=== PATIENT | male | born 1965 | race Caucasian/White ===

== ENCOUNTER 2018-07-13 16:17 | Inpatient (IN) ==
[2018-07-13 16:56] LABS: Basophils # 0.1 K/mm3 (0-0.2); Basophils % 0.9 % (0.1-2.0); Eosinophils % 6.5 % (0.1-12.0); Hematocrit 44.1 % (42.0-52.0); Hemoglobin 15.9 g/dL (14.1-18.0); Lymphocytes # 2.9 K/mm3 (0.7-4.5); Lymphocytes % 18.9 K/mm3 (10-50); Mean Corpuscular HGB Conc 36.1 g/dL (31.8-35.4); Mean Corpuscular Hemoglobin 32.2 pg (27.0-31.2); Mean Platelet Volume 6.4 fl (7.4-10.4); Monocytes # 1.3 K/mm3 (0.1-1.0); Monocytes % 8.7 % (1.7-9.3); Neutrophils # 9.8 K/mm3 (1.8-7.8); Platelet Count 353 K/mm3 (142-424); Red Blood Count 4.96 M/mm3 (4.60-6.20); Red Cell Distribution Width 17.3 % (11.5-17.5); White Blood Count 15.1 K/mm3 (4.8-10.8)
[2018-07-13 17:10] LABS: Anion Gap 15.7 mEq/L (5-15); Blood Urea Nitrogen 9 mg/dL (7-18); Calcium 9.1 mg/dL (8.5-10.1); Carbon Dioxide 25 mmol/L (21.0-32.0); Chloride 104 mmol/L (98-107); Glucose 95 mg/dL (74-106); Potassium 3.7 mmoL/L (3.5-5.1); Sodium 141 mmol/L (136-145)
--- NOTE | 2018-07-13 17:11 | Emergency Department Note ---
ED Disposition Clinical Impression: Lung mass, Essential hypertension Pneumonia Qualifiers: Pneumonia type: due to unspecified organism Laterality: right Lung location: lower lobe of lung Qualified Code(s): J18.1 - Lobar pneumonia, unspecified organism Disposition: Admitted as Observation Condition on Discharge: Fair Instructions: Pneumonia-Adult Additional Instructions: I discussed this patient with Dr. Costa who is covering for Dr. Gonzalez and the patient is being admitted for blood pressure control and for treatment of his pneumonia and for further evaluation of these lung masses Referrals: Russell Gonzalez MD [Primary Care Provider] - Time of Disposition: 18:59 - Critical Care Critical Care Time: No Attestation: On 07/13/18, the high probability of a clinically significant, sudden or life threatening deterioration of the following system(s) required my full and direct attention, intervention and personal management. The time I documented below is in addition to time spent performing reported procedures but includes the following listed in this critical care notation. Medical Decision Making - Medical Records Medical records reviewed: Yes: I reviewed the patient's medical records. - Robert Inquiry Pt receiving controlled substance: Yes Robert was queried for this patient: No Reason not queried -: Emergent pt cond-no time Risks and benefits of using a controlled substance: were not discussed with pt by me Vital Signs: 07/13/18 16:20 07/13/18 16:55 07/13/18 16:59 Temperature 98.2 F Temperature Source Oral Pulse Rate [Apical] 116 H 100 H 99 H Respiratory Rate 18 18 20 Blood Pressure [Right Arm] 230/115 190/116 182/117 Blood Pressure Mean [Right Arm] 153 140 138 Blood Pressure Source [Right Arm] Manual Cuff/ Auscultation Automatic Cuff Automatic Cuff Blood Pressure Position [Right Arm] Sitting Sitting Sitting 02 Sat by Pulse Oximetry 95 95 95 Oxygen Delivery Method Room Air Room Air Room Air 07/13/18 17:37 07/13/18 18:14 Temperature Temperature Source Pulse Rate [Apical] 89 88 Respiratory Rate 18 21 Blood Pressure [Right Arm] 197/117 183/119 Blood Pressure Mean [Right Arm] 143 140 Blood Pressure Source [Right Arm] Automatic Cuff Automatic Cuff Blood Pressure Position [Right Arm] Sitting Sitting 02 Sat by Pulse Oximetry 95 95 Oxygen Delivery Method Room Air Room Air - Lab Data Lab results reviewed: Yes: I reviewed the patient's lab results. Lab Results 07/13/18 16:42: WBC 15.1 H, RBC 4.96, Hgb 15.9, Hct 44.1, MCV 89.0, MCH 32.2 H, MCHC 36.1 H, RDW 17.3, Plt Count 353, MPV 6.4 L, Neut % (Auto) 65.0, Lymph % (Auto) 18.9, [place] % (Auto) 8.7, Eos % (Auto) 6.5, Baso % (Auto) 0.9, Neut # (Auto) 9.8 H, Lymph # (Auto) 2.9, [place] # (Auto) 1.3 H, Eos # (Auto) 1.0 H, Baso # (Auto) 0.1, Total Counted 100, Neutrophils % (Manual) 67, Lymphocytes % (Manual) 24, Monocytes % (Manual) 5, Eosinophils % (Manual) 3, Metamyelocytes % 1.0, Platelet Estimate Normal, RBC Morphology Normal 07/13/18 16:42: Sodium 141, Potassium 3.7, Chloride 104, Carbon Dioxide 25, Anion Gap 15.7 H, BUN 9, Creatinine 1.02, Estimated Creat Clear 159, Estimated GFR 77, Est GFR ( Amer) 93, Glucose 95, Calcium 9.1, Troponin I < 0.02 Result diagrams: 07/13/18 16:42 07/13/18 16:42 Orders (Tests/Meds): ED MEDICATIONS Discontinued Medications Generic Name Dose Route Start Last Admin Trade Name Freq PRN Reason Stop Dose Admin Iopamidol 75 ml 07/13/18 18:04 07/13/18 18:04 [id number]; 75ml Vial IV 07/13/18 18:05 75 ml ONCE ONE Administration Protocol Lorazepam 1 mg 07/13/18 17:21 07/13/18 17:22 Ativan 2mg/Ml Vial IV 07/13/18 17:22 1 mg ONCE ONE Administration Metoprolol Tartrate 2.5 mg 07/13/18 17:13 07/13/18 17:23 Metoprolol Tartrate 5mg/5ml Vial IV 07/13/18 17:14 2.5 mg ONCE ONE Administration Metoprolol Tartrate 25 mg 07/14/18 17:15 Lopressor 25mg Tablet PO 07/14/18 17:16 ONCE ONE Metoprolol Tartrate 25 mg 07/13/18 17:24 07/13/18 17:25 Lopressor 50mg Tablet PO 07/13/18 17:25 25 mg ONCE ONE Administration Sodium Chloride 10 ml 07/13/18 18:04 07/13/18 18:04 Rad-Saline Flush 10ml Syringe IV 07/13/18 18:05 10 ml ONCE ONE Administration ORDERS Category Date Time Status CT chest w con Stat Cat Scan 07/13/18 17:30 Taken Chest XR -- portable [XR chest portable] Stat Exams 07/13/18 16:27 Taken Lactic Acid Stat Lab 07/13/18 18:23 Ordered Blood Culture Stat Micro 07/13/18 18:23 Ordered ABG PH Stat RT 07/13/18 18:23 Ordered - Radiology Data #1 Image(s): Chest Image Reviewed: Yes I reviewed the patient's radiology results Right hilar mass with right lower lobe effusion - CT Data CT Scan: Chest Time Received: 18:[address] Reviewed: Yes: I have reviewed the patient's CT results, I discussed the CT results w/the radiologist, I have viewed the radiologist's interpretation Findings Narrative: CT chest shows a large soft tissue mass within the right upper lobe this 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 and or a ssociated with mediastinal lymphadenopathy there is also a right lower lobe pneumonia present with a large right pleural effusion - ECG Data Tracing #1 I reviewed this ECG and interpreted as documented below: ECG initial impression date: 07/13/18 ECG initial impression time: 17:05 Normal Sinus Rhythm: Yes Arrhythmias present: sinus tach Ischemic changes: non-specific ST-T wave changes General Adult HPI - General Chief complaint: Dizziness Stated complaint: High Blood Pressure per [facility] Time Seen by Provider: 07/13/18 17:06 Mode of Arrival: Ambulatory Limitations: No Limitations Description of Symptoms (Recalled from ER Triage Doc. by RN): Pt reports he went to [facility] to get check out r/t congestion and "nerves bothering me". Pt reports provider at [facility] told him he needed to come to the ER for further evaluation r/t high blood pressure. - History of Present Illness HPI narrative: Patient went to the [facility] to rule out congestion and said his nerves have been bothering him a lot at the [facility] his blood pressure was 240 systolic he was advised to come to the emergency room for treatment on arrival in the emergency room his blood pressure was 230/118 he gives a history that he has had hypertension in the past but has not been on any medicines for it in quite some time he also has a history of smoking and smoked and quit smoking 1 week ago he has no known drug allergies does not drink alcohol and does not use drugs he has had only an umbilical hernia repair in the past and he does have a family history of hypertension Onset (ago): day(s) Location: chest - Related Data Home Medications Medication Instructions Recorded Confirmed LORazepam [Ativan 0.5mg tablet] 0.5 mg PO BID 07/13/18 07/13/18 Allergies Allergy/AdvReac Type Severity Reaction Status Date / Time No Known Allergies Allergy Unverified 10/16/17 14:09 [facility] History I have reviewed the patient's past medical history: Yes Medical History: Denies:: Diabetes Mellitus Type 1, Diabetes Mellitus Type 2 - Social History Smoking Status: Current some day smoker Alcohol Intake: never - Psychiatric History Expresses thoughts of harming self/others: None Suicide Plan Description: No Plan ROS Obtained: Yes All systems reviewed & no additional complaints - Constitutional Constitutional: Reports system reviewed and no additional complaints, except as docu - Cardiovascular Cardiovascular: Reports system reviewed and no additional complaints, except as docu, Reports as per HPI - Respiratory Respiratory: Yes system reviewed and no additional complaints, except as docu, Yes as per HPI Physical Exam - General General appearance: alert, in no apparent distress, anxious - Head Head exam: atraumatic - Eye Eye exam: Present: normal appearance - ENT ENT exam: Present: normal exam - Neck Neck exam: Present: normal inspection - Chest Chest inspection: Present: normal inspection - Respiratory Respiratory exam: Present: other (Patient has decreased breath sounds on the right side with some scattered wheezing) - Cardiovascular Cardiovascular exam: Present: tachycardia - Abdominal Exam Abdominal exam: Present: soft, normal bowel sounds - Neurological Exam Neurological exam: Present: alert, oriented X3 - Psychiatric Psychiatric exam: Present: normal affect
[2018-07-13 18:00] LABS: Eosinophils % 3 % (0-3); Lymphocytes % 24 % (10-50); Monocytes % 5 % (2-9); Neutrophils % 67 % (42-76); Total Cells Counted 100
[2018-07-13 18:01] LABS: RBC Morphology Normal
[2018-07-13 18:58] LABS: ABG Base Excess -2.4 mmol/L (-2.4-2.3); ABG HCO3 21.7 mmhg (22.0-26.0); ABG Oxygen Saturation 93 % (90-100); ABG PCO2 32.4 mmhg (35.0-45.0); ABG PH 7.44 mmol/L (7.35-7.45); ABG PO2 65.1 mmhg (80-100); ABG TCO2 22.7 mmhg (23-27)
[2018-07-13 18:59] LABS: Allen's Test Y; Oxygen R/A %
--- NOTE | 2018-07-13 21:13 | History & Physical Report ---
*Admission Date: 07/13/18 *Chief complaint: sob *History of present illness: this wm went to the [facility] to rule out congestion and said his nerves have been bothering him a lot at the [facility] his blood pressure was 240 systolic he was advised to come to the emergency room for treatment on arrival in the emergency room his blood pressure was 230/118 he gives a history that he has had hypertension in the past but has not been on any medicines for it in quite some time he also has a history of smoking and smoked and quit smoking 1 week ago he has no known drug allergies does not drink alcohol and does not use drugs he has had only an umbilical hernia repair in the past and he does have a family history of hypertension pt was seen in the ed and noted to have rt lung mass with pneummonia and pleural effusion and was admitted for iv abx and treatment [facility] History I have reviewed the patient's past medical history: Yes Medical History: Denies:: Diabetes Mellitus Type 1, Diabetes Mellitus Type 2 - *Social History Smoking Status: Current some day smoker Alcohol Intake: never - Psychiatric History Expresses thoughts of harming self/others: None Suicide Plan Description: No Plan Review of Systems - Review of Systems Review of systems:: pertinent systems reviewed and negative unless documented below - Constitutional Denies fever(s) - Eyes Denies change in vision - ENT Denies headache(s) - *Cardiovascular Reports chest pain - *Respiratory Reports cough, Reports shortness of breath - *Gastrointestinal Denies abdominal pain - *Genitourinary Denies blood in urine - *Musculoskeletal Denies joint pain - Integumentary/Breasts Denies rash - *Neurologic Denies seizure-like activity - Psychiatric Reports anxiety Meds Home Medications Medication Instructions Recorded Confirmed Type LORazepam [Ativan 0.5mg tablet] 0.5 mg PO BID 07/13/18 07/13/18 History Allergies Allergy/AdvReac Type Severity Reaction Status Date / Time No Known Allergies Allergy Unverified 10/16/17 14:09 Exam Vital signs and Labs for Last 24 Hours: Temp Pulse Resp BP Pulse Ox 98.1 F 86 20 173/105 97 07/13/18 19:24 07/13/18 19:24 07/13/18 19:24 07/13/18 19:24 07/13/18 19:24 Laboratory Results - last 24 hr 07/13/18 16:42: WBC 15.1 H, RBC 4.96, Hgb 15.9, Hct 44.1, MCV 89.0, MCH 32.2 H, MCHC 36.1 H, RDW 17.3, Plt Count 353, MPV 6.4 L, Neut % (Auto) 65.0, Lymph % (Auto) 18.9, [place] % (Auto) 8.7, Eos % (Auto) 6.5, Baso % (Auto) 0.9, Neut # (Auto) 9.8 H, Lymph # (Auto) 2.9, [place] # (Auto) 1.3 H, Eos # (Auto) 1.0 H, Baso # (Auto) 0.1, Total Counted 100, Neutrophils % (Manual) 67, Lymphocytes % (Manual) 24, Monocytes % (Manual) 5, Eosinophils % (Manual) 3, Metamyelocytes % 1.0, Platelet Estimate Normal, RBC Morphology Normal 07/13/18 16:42: Sodium 141, Potassium 3.7, Chloride 104, Carbon Dioxide 25, Anion Gap 15.7 H, BUN 9, Creatinine 1.02, Estimated Creat Clear 159, Estimated GFR 77, Est GFR ( Amer) 93, Glucose 95, Calcium 9.1, Troponin I < 0.02 07/13/18 18:40: Lactate 1.6 07/13/18 18:57: Specimen Source R/r, O2 % R/a, ABG pH 7.44, ABG pCO2 32.4 L, ABG pO2 65.1 L, ABG HCO3 21.7 L, ABG Total CO2 22.7 L, ABG O2 Saturation 93, ABG Base Excess -2.4, Maycol Test Y I & O for Last 24 hours: Intake & Output 07/11/18 07/12/18 07/13/18 07/14/18 11:59 11:59 11:59 11:59 Weight 287 lb 1 oz - Constitutional no acute distress, obese - *Routine HEENT Exam Head: Present: normocephalic Eye: Present: EOMI, PERRL. Absent: conjunctival icterus ENT: Present: mucous membranes dry - *Routine Neck Exam Absent: JVD - *Routine Respiratory Exam Present: distant breath sounds. Absent: respiratory distress - *Routine Cardiovascular Exam Present: RRR, murmur - *Routine Abdominal Exam Present: soft - *Routine Extremities Exam Present: edema. Absent: palpable cord - *Routine Skin Exam Present: intact - *Routine Neurological Exam Present: alert, oriented X3, CN II-XII intact - Routine Psychiatric Exam Present: normal affect Assessment and Plan (1) Pneumonia Current visit: Yes Status: Acute Qualifiers: Pneumonia type: due to unspecified organism Laterality: right Lung location: lower lobe of lung Qualified Code(s): J18.1 - Lobar pneumonia, unspecified organism Category: Medical Code(s): J18.9 - Pneumonia, unspecified organism (2) Lung mass Current visit: Yes Status: Acute Category: Medical Code(s): R91.8 - Other nonspecific abnormal finding of lung field (3) Essential hypertension Current visit: Yes Status: Acute Category: Medical Code(s): I10 - Essential (primary) hypertension (4) Overweight Current visit: Yes Status: Acute Category: Medical Code(s): E66.3 - Overweight (5) Anxiety Current visit: Yes Status: Acute Category: Medical Code(s): F41.9 - Anxiety disorder, unspecified
[2018-07-14 07:09] LABS: Basophils % 0.1 % (0.1-2.0); Hematocrit 46.5 % (42.0-52.0); Lymphocytes # 1.3 K/mm3 (0.7-4.5); Mean Corpuscular HGB Conc 32.3 g/dL (31.8-35.4); Mean Corpuscular Hemoglobin 29.3 pg (27.0-31.2); Mean Corpuscular Volume 90.7 fl (80-94); Mean Platelet Volume 6.4 fl (7.4-10.4); Monocytes # 0.4 K/mm3 (0.1-1.0); Monocytes % 2.8 % (1.7-9.3); Neutrophils # 12.8 K/mm3 (1.8-7.8); Neutrophils % 88.1 % (37.0-80.0); Platelet Count 376 K/mm3 (142-424); Red Blood Count 5.12 M/mm3 (4.60-6.20); Red Cell Distribution Width 17.2 % (11.5-17.5); White Blood Count 14.5 K/mm3 (4.8-10.8)
[2018-07-14 07:21] LABS: Albumin Level 3.7 gm/dL (3.4-5.0); Albumin/Globulin Ratio 0.9 (1.1-1.8); Anion Gap 15.5 mEq/L (5-15); Bilirubin,Total 0.7 mg/dL (0.2-1.0); Calcium 8.8 mg/dL (8.5-10.1); Globulin 4.1 gm/dl (1.3-3.2); Potassium 4.5 mmoL/L (3.5-5.1); Total Protein,Serum 7.8 gm/dL (6.4-8.2)
[2018-07-14 07:26] LABS: Lymphocytes % 5 % (10-50); Monocytes % 1 % (2-9); Neutrophils % 94 % (42-76); RBC Morphology Normal; Total Cells Counted 100
--- NOTE | 2018-07-14 08:36 | Progress Note ---
Internal Medicine - PN: Subj *Date: 07/14/18 *Time: 08:34 Interval history: restless night but no gross hemoptysis- pt with no gross fever - Exam Vital signs and Labs for Last 24 Hours: Temp Pulse Resp BP Pulse Ox 97.9 F 98 H 20 170/83 92 L 07/14/18 08:02 07/14/18 08:02 07/14/18 08:02 07/14/18 08:02 07/14/18 08:02 Laboratory Results - last 24 hr 07/13/18 16:42: WBC 15.1 H, RBC 4.96, Hgb 15.9, Hct 44.1, MCV 89.0, MCH 32.2 H, MCHC 36.1 H, RDW 17.3, Plt Count 353, MPV 6.4 L, Neut % (Auto) 65.0, Lymph % (Auto) 18.9, [place] % (Auto) 8.7, Eos % (Auto) 6.5, Baso % (Auto) 0.9, Neut # (Auto) 9.8 H, Lymph # (Auto) 2.9, [place] # (Auto) 1.3 H, Eos # (Auto) 1.0 H, Baso # (Auto) 0.1, Total Counted 100, Neutrophils % (Manual) 67, Lymphocytes % (Manual) 24, Monocytes % (Manual) 5, Eosinophils % (Manual) 3, Metamyelocytes % 1.0, Platelet Estimate Normal, RBC Morphology Normal 07/13/18 16:42: Sodium 141, Potassium 3.7, Chloride 104, Carbon Dioxide 25, Anion Gap 15.7 H, BUN 9, Creatinine 1.02, Estimated Creat Clear 159, Estimated GFR 77, Est GFR ( Amer) 93, Glucose 95, Calcium 9.1, Troponin I < 0.02 07/13/18 18:40: Lactate 1.6 07/13/18 18:57: Specimen Source R/r, O2 % R/a, ABG pH 7.44, ABG pCO2 32.4 L, ABG pO2 65.1 L, ABG HCO3 21.7 L, ABG Total CO2 22.7 L, ABG O2 Saturation 93, ABG Base Excess -2.4, Maycol Test Y 07/14/18 06:30: WBC 14.5 H, RBC 5.12, Hgb 15.0, Hct 46.5, MCV 90.7, MCH 29.3, MCHC 32.3, RDW 17.2, Plt Count 376, MPV 6.4 L, Neut % (Auto) 88.1 H, Lymph % (Auto) 9.0 L, [place] % (Auto) 2.8, Eos % (Auto) 0.0 L, Baso % (Auto) 0.1, Neut # (Auto) 12.8 H, Lymph # (Auto) 1.3, [place] # (Auto) 0.4, Eos # (Auto) 0.0, Baso # (Auto) 0.0, Total Counted 100, Neutrophils % (Manual) 94 H, Lymphocytes % (Manual) 5 L, Monocytes % (Manual) 1 L, Platelet Estimate Normal, RBC Morphology Normal 07/14/18 06:30: Sodium 140, Potassium 4.5 D, Chloride 104, Carbon Dioxide 25, Anion Gap 15.5 H, BUN 10, Creatinine 0.95, Estimated Creat Clear 169, Estimated GFR 84, Est GFR ( Amer) 101, Glucose 131 H D, Calcium 8.8, Total Bilirubin 0.7, AST 12 L, ALT 24, Alkaline Phosphatase 131 H, Total Protein 7.8, Albumin 3.7, Globulin 4.1 H, Albumin/Globulin Ratio 0.9 L I & O for Last 24 hours: Intake & Output 07/11/18 07/12/18 07/13/18 07/14/18 11:59 11:59 11:59 11:59 Intake Total 469 / 469 Output Total 500 / 500 Balance - / - Weight 287 lb 1 oz - Constitutional no acute distress - *Routine HEENT Exam Head: Present: normocephalic Eye: Present: EOMI, PERRL ENT: Present: mucous membranes dry - *Routine Neck Exam Absent: JVD - *Routine Respiratory Exam Present: decreased breath sounds - *Routine Cardiovascular Exam Present: RRR - *Routine Abdominal Exam Present: soft - *Routine Extremities Exam Present: edema - *Routine Skin Exam Present: intact - *Routine Neurological Exam Present: alert, oriented X3, CN II-XII intact - Routine Psychiatric Exam Present: anxious Assessment and Plan (1) Pneumonia Current visit: Yes Status: Acute Qualifiers: Pneumonia type: due to unspecified organism Laterality: right Lung location: lower lobe of lung Qualified Code(s): J18.1 - Lobar pneumonia, unspecified organism Category: Medical Code(s): J18.9 - Pneumonia, unspecified organism (2) Lung mass Current visit: Yes Status: Acute Category: Medical Code(s): R91.8 - Other nonspecific abnormal finding of lung field (3) Essential hypertension Current visit: Yes Status: Acute Category: Medical Code(s): I10 - Essential (primary) hypertension (4) Overweight Current visit: Yes Status: Acute Category: Medical Code(s): E66.3 - Overweight (5) Anxiety Current visit: Yes Status: Acute Category: Medical Code(s): F41.9 - Anxiety disorder, unspecified
--- NOTE | 2018-07-14 10:38 | Pharmacy Consult Notes ---
[facility] Pharmacy VTE Monitoring - Patient Demographics Admission date: 07/13/18 Report Date: 07/14/18 Time: 10:38 Allergies/Adverse Reactions: Patient Allergies No Known Allergies Allergy (Unverified 10/16/17 14:09) Height: 1.88 m Weight: 130.209 kg Patient Problems: Current Active Problems Pneumonia (Acute) Lung mass (Acute) Essential hypertension (Acute) Overweight (Acute) Anxiety (Acute) - VTE Risk Labs: VTE Related Lab Results Hgb 15.0 g/dL (14.1-18.0) 07/14/18 06:30 Hct 46.5 % (42.0-52.0) 07/14/18 06:30 Plt Count 376 K/mm3 (142-424) 07/14/18 06:30 BUN 10 mg/dL (7-18) 07/14/18 06:30 Creatinine 0.95 mg/dL (0.70-1.30) 07/14/18 06:30 Estimated Creat Clear 169 mL/min (0-300) 07/14/18 06:30 Was VTE Risk Assessment Performed: Yes VTE Risk Level: Very Low Risk - Prophylaxis VTE Prophylaxis Ordered?: Yes Types of VTE Prophylaxis: TEDS Knee High, Pharmacological Location of Applied Device: Bilateral Lower Extremeties Pharmacologic Type: Enoxaparin - VTE Diagnosis Confirmed Treatment or plan recommended: Continue Current Treatment
--- NOTE | 2018-07-15 08:50 | Progress Note ---
Internal Medicine - PN: Subj *Date: 07/15/18 *Time: 08:50 Interval history: pt with anxiety about dx and no hemoptysis -will ask pul med to see pt Exam Vital signs and Labs for Last 24 Hours: Temp Pulse Resp BP Pulse Ox 97.6 F 99 H 20 156/89 93 L 07/15/18 08:00 07/15/18 08:00 07/15/18 08:00 07/15/18 04:00 07/15/18 08:00 I & O for Last 24 hours: Intake & Output 07/12/18 07/13/18 07/14/18 07/15/18 11:59 11:59 11:59 11:59 Intake Total 469 / 469 2299 / 2299 Output Total 500 / 500 750 / 750 Balance -31 / -31 1549 / 1549 Weight 287 lb 1 oz Microbiology Reports for the Last 24 Hours: Microbiology 07/14/18 09:45 Sputum - Expectorated Sputum Gram Stain - Final 07/14/18 09:45 Sputum - Expectorated Sputum Sputum Culture - Preliminary Assessment and Plan (1) Pneumonia Current visit: Yes Status: Acute Qualifiers: Pneumonia type: due to unspecified organism Laterality: right Lung location: lower lobe of lung Qualified Code(s): J18.1 - Lobar pneumonia, unspecified organism Category: Medical Code(s): J18.9 - Pneumonia, unspecified organism (2) Lung mass Current visit: Yes Status: Acute Category: Medical Code(s): R91.8 - Other nonspecific abnormal finding of lung field (3) Essential hypertension Current visit: Yes Status: Acute Category: Medical Code(s): I10 - Essential (primary) hypertension (4) Overweight Current visit: Yes Status: Acute Category: Medical Code(s): E66.3 - Overweight (5) Anxiety Current visit: Yes Status: Acute Category: Medical Code(s): F41.9 - Anxiety disorder, unspecified
--- NOTE | 2018-07-15 20:36 | Cardiology Report ---
PROCEDURE: 2-D M-mode and color Doppler study INDICATIONS FOR THE TEST: Chest pain COPD Heart Murmur+ Tobacco SmokingEX Palpitations Fatigue Syncope Edema Hypertension+Diabetes Mellitus Rheumatic Fever SOB+GRIMALDO+Obesity Hyperlipidemia Family History HD+ Additional History PATIENT INFORMATION HEIGHT: 74 WEIGHT: 287 GENDER: Male B/P: 170/83 2-D/M-MODE INTERPRETATION: 2-D MEASUREMENTS OBSERVED VALUES IN CMS Right Ventricular Dimension (RVDd) 2.8 Interventricular Septum (Thickness)(IVsd) 1.4 Left Ventricular Internal Dimensions(LVIDd) 4.7 Left Ventricular Posterior Wall (Thickness)(LVPWd) 1.4 Aortic Root 4.3 Aortic Cusp Separation 2.0 Left Atrial Dimensions (LAD) 3.7 2D 1. Left atrium is mildly enlarged, left ventricle is normal size, mild concentric left ventricular hypertrophy, visually estimated ejection fraction 55% with no obvious regional wall motion abnormality. 2. The right atrium and right ventricle are normal size and contractility. 3. The aortic valve is minimally thickened and fibrosed. 4. The mitral and tricuspid valve are grossly normal. 5. The pulmonic valve is poorly visualized. 6. No significant pericardial effusion noted. DOPPLER INTERROGATION: Doppler interrogation of the aortic, mitral and tricuspid valvular presence of mild mitral and tricuspid regurgitation, tricuspid regurgitation jet velocity is insufficient for calculation of the ventricular systolic pressure, grade 1 diastolic dysfunction seen with tissue Doppler evidence of raised left atrial pressure. CONCLUSION: 1. Mildly enlarged left atrium, normal left ventricular size, mild concentric left ventricular hypertrophy, visually estimated ejection fraction 55% with no regional wall motion abnormality. 2. Grade 1 diastolic dysfunction seen with tissue Doppler evidence of raised left atrial pressure. 3. Mild mitral and tricuspid regurgitation 4. No significant pericardial effusion noted.
[2018-07-16 06:59] LABS: Basophils # 0.1 K/mm3 (0-0.2); Basophils % 0.7 % (0.1-2.0); Eosinophils # 0.6 K/mm3 (0.0-0.4); Eosinophils % 4.2 % (0.1-12.0); Hematocrit 42.9 % (42.0-52.0); Hemoglobin 14.1 g/dL (14.1-18.0); Lymphocytes # 2.5 K/mm3 (0.7-4.5); Mean Corpuscular HGB Conc 32.9 g/dL (31.8-35.4); Mean Corpuscular Hemoglobin 29.9 pg (27.0-31.2); Mean Corpuscular Volume 90.7 fl (80-94); Mean Platelet Volume 7.4 fl (7.4-10.4); Monocytes # 1.3 K/mm3 (0.1-1.0); Monocytes % 9.6 % (1.7-9.3); Neutrophils # 9.3 K/mm3 (1.8-7.8); Neutrophils % 67.5 % (37.0-80.0); Platelet Count 250 K/mm3 (142-424); Red Blood Count 4.73 M/mm3 (4.60-6.20); Red Cell Distribution Width 17.3 % (11.5-17.5); White Blood Count 13.7 K/mm3 (4.8-10.8)
--- NOTE | 2018-07-16 09:19 | Consult Report ---
*Admission Date: 07/13/18 *Chief complaint: I have pneumonia. *History of present illness: Mr. Dela Cruz is a 53-year-old man who had been in reasonably good health until a week or so ago when he began to experience an increase in his chronic cough which is productive of small amounts of clear sputum. He had no associated fever, chills, chest pain, hemoptysis or abdominal complaints and has had no recent weight change. He has a history of hypertension but had been off all medications following surgery for an abdominal ventral hernia about a year ago. Because of the cough and because he wanted a checkup, he went to the [facility] at [facility] and was found to have an exceptionally high blood pressure. He was referred to the emergency room here where a chest x-ray showed considerable abnormalities on the right and a CT scan confirmed a large right pleural effusion associated with a right upper lobe mass. Mr. Dela Cruz has no prior history of pneumonia and had little in the way of respiratory symptoms despite smoking between one half and 1 package of cigarettes daily for more than 25 years. He has no history of exposure to tuberculosis. He sleeps well at home; his appetite is good and his weight, as mentioned above, has been stable. Because of the x-ray abnormalities, I was asked to see him by Dr. Gonzalez. [facility] History Medical History: Reports:: Hypertension Denies:: Diabetes Mellitus Type 1, Diabetes Mellitus Type 2 Other Surgeries: Yes: Hernia Repair (umbilical) Amputation: No Fractures: No - *Social History Educational Level: Attended Grade School Smoking Status: Current some day smoker Smoking End Date: 07/05/18 Alcohol Intake: never Occupational Status: employed Housing: house Household Members: spouse Comment: Mr. Dela Cruz went through the seventh grade but can read and write. 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 His of 29 years is with him today. She recently had a hysterectomy. They live in their own home and have a dog. - Psychiatric History Expresses thoughts of harming self/others: None Suicide Plan Description: No Plan Pschychiatric History:: Reports:: Anxiety (He tends to pace quite a bit, even at home and he has been quite anxious fo) *Family Hx:: Anemia, Heart Attack, Hypertension Comment: His mother had emphysema. There is no family history of any cancer. Review of Systems - *Neurologic Denies headache(s), Denies seizure-like activity Meds Home Medications Medication Instructions Recorded Confirmed Type LORazepam [Ativan 0.5mg tablet] 0.5 mg PO BID 07/13/18 07/13/18 History Allergies Allergy/AdvReac Type Severity Reaction Status Date / Time No Known Allergies Allergy Unverified 10/16/17 14:09 Exam Vital signs and Labs for Last 24 Hours: Temp Pulse Resp BP Pulse Ox 97.6 F 83 18 165/80 94 L 07/16/18 07:21 07/16/18 07:21 07/16/18 07:21 07/16/18 07:21 07/16/18 07:21 Laboratory Results - last 24 hr 07/16/18 06:48: WBC 13.7 H, RBC 4.73, Hgb 14.1, Hct 42.9, MCV 90.7, MCH 29.9, MCHC 32.9, RDW 17.3, Plt Count 250 D, MPV 7.4, Neut % (Auto) 67.5, Lymph % (Auto) 18.0, Coal % (Auto) 9.6 H, Eos % (Auto) 4.2, Baso % (Auto) 0.7, Neut # (Auto) 9.3 H, Lymph # (Auto) 2.5, Coal # (Auto) 1.3 H, Eos # (Auto) 0.6 H, Baso # (Auto) 0.1 On physical examination, Mr. Dela Cruz is a pleasant, articulate, overweight man who is sitting in a chair in no acute distress. HEENT: Sclerae clear; conjunctivae pink; EOMs full; external nares unremarkable; hearing seems normal; oropharynx is Mallampati IV and he has no mucosal lesions. He is missing a few teeth. Neck: No adenopathy; carotids 2+ and without bruits. Chest: Symmetrical expansion; dullness at the right base to the mid scapular area. There is decreased vocal fremitus at the right base. There are tubular breath sounds and there is egophony at the right base. There are no adventitious sounds. Heart: Regular rhythm; no murmur. Abdomen: Protuberant; bowel sounds present; soft, nontender, no masses or organomegaly. Neurological: Grossly intact Skin: No rash Extremities: No clubbing or edema. I & O for Last 24 hours: Intake & Output 07/13/18 07/14/18 07/15/18 07/16/18 23:59 23:59 23:59 23:59 Intake Total 629 / 629 3394 / 3394 1767 / 1767 Output Total 1250 / 1250 Balance -621 / -621 3392 / 3392 1766 / 1766 Weight 130.209 kg 130.209 kg Microbiology Reports for the Last 24 Hours: Microbiology 07/14/18 09:45 Sputum - Expectorated Sputum Gram Stain - Final 07/14/18 09:45 Sputum - Expectorated Sputum Sputum Culture - Preliminary 07/13/18 18:40 Blood Blood Culture - Preliminary NO GROWTH AFTER 48 HOURS 07/13/18 18:40 Blood Blood Culture - Preliminary NO GROWTH AFTER 48 HOURS Internal Medicine - CN: Reslt - Labs CBC & Chem 7: 07/16/18 06:48 07/14/18 06:30 Labs: Short CBC 07/16/18 Range/Units 06:48 WBC 13.7 H (4.8-10.8) K/mm3 Hgb 14.1 (14.1-18.0) g/dL Hct 42.9 (42.0-52.0) % Plt Count 250 D (142-424) K/mm3 - ABG Interpretation ABG results: 07/13/18 18:57 ABG pH 7.44 ABG pCO2 32.4 L ABG pO2 65.1 L ABG HCO3 21.7 L ABG Total CO2 22.7 L ABG O2 Saturation 93 ABG Base Excess -2.4 - Impressions I personally reviewed the CT scan of the chest performed here recently and confirm a large right upper lobe mass, possibly with some necrosis and associated with a large right pleural effusion. There is atelectasis of the right lower lobe and I do not see evidence of postobstructive pneumonia. I do not see definite evidence of mediastinal adenopathy. Assessment and Plan (1) Pneumonia Current visit: Yes Status: Acute Qualifiers: Pneumonia type: due to unspecified organism Laterality: right Lung location: lower lobe of lung Qualified Code(s): J18.1 - Lobar pneumonia, unspecified organism Category: Medical Code(s): J18.9 - Pneumonia, unspecified organism (2) Lung mass Current visit: Yes Status: Acute Category: Medical Code(s): R91.8 - Other nonspecific abnormal finding of lung field (3) Essential hypertension Current visit: Yes Status: Acute Category: Medical Code(s): I10 - Essential (primary) hypertension (4) Overweight Current visit: Yes Status: Acute Category: Medical Code(s): E66.3 - Overweight (5) Anxiety Current visit: Yes Status: Acute Category: Medical Code(s): F41.9 - Anxiety disorder, unspecified - Assessment and plan all Dx Assessment and Plan for all problems:: Mr. Dela Cruz has a large right upper lobe mass associated with a large pleural effusion and malignancy is the most likely cause for these findings. I exp lained this to him and his and feel the first step should be thoracentesis, sending the fluid for chemistries, cell count and cytology as well as culture. If this is not diagnostic, I will arrange for outpatient bronchoscopy in [place]. I do not feel that he has postobstructive pneumonia and believe he can go home after the thoracentesis. He does not need further antibiotic therapy in my opinion. Thank you for the opportunity to participate in Mr. Dela Cruz' care.
--- NOTE | 2018-07-16 13:34 | Discharge Summary ---
General - General Admission date:: 07/13/18 Discharge date: 07/16/18 HPI HPI: this wm went to the [facility] to rule out congestion and said his nerves have been bothering him a lot at the [facility] his blood pressure was 240 systolic he was advised to come to the emergency room for treatment on arrival in the emergency room his blood pressure was 230/118 he gives a history that he has had hypertension in the past but has not been on any medicines for it in quite some time he also has a history of smoking and smoked and quit smoking 1 week ago he has no known drug allergies does not drink alcohol and does not use drugs he has had only an umbilical hernia repair in the past and he does have a family history of hypertension pt was seen in the ed and noted to have rt lung mass with pneummonia and pleural effusion and was admitted for iv abx and treatment Hospital Course Hospital Course: pt has been doing ok with iv abx and has been anxious regarding his medical dx- he had stable echo and was seen by dr careydavid Dela Cruz is a 53-year-old man who had been in reasonably good health until a week or so ago when he began to experience an increase in his chronic cough which is productive of small amounts of clear sputum. He had no associated fever, chills, chest pain, hemoptysis or abdominal complaints and has had no recent weight change. He has a history of hypertension but had been off all medications following surgery for an abdominal ventral hernia about a year ago. Because of the cough and because he wanted a checkup, [facility] and was found to have an exceptionally high blood pressure. He was referred to the emergency room here where a chest x-ray showed considerable abnormalities on the right and a CT scan confirmed a large right pleural effusion associated with a right upper lobe mass. Mr. Dela Cruz has no prior history of pneumonia and had little in the way of respiratory symptoms despite smoking between one half and 1 package of cigarettes daily for more than 25 years. He has no history of exposure to tuberculosis. He sleeps well at home; his appetite is good and his weight, as mentioned above, has been stable. david Dela Cruz has a large right upper lobe mass associated with a large pleural effusion and malignancy is the most likely cause for these findings. I explained this to him and his and feel the first step should be thoracentesis, sending the fluid for chemistries, cell count and cytology as well as culture. If this is not diagnostic, I will arrange for outpatient bronchoscopy in [place]. I do not feel that he has postobstructive pneumonia and believe he can go home after the thoracentesis. He does not need further antibiotic therapy in my opinion. pt will be d/c to see pul as op and pcp Objective Vital signs: Temp Pulse Resp BP Pulse Ox 97.6 F 75 18 160/89 95 07/16/18 11:18 07/16/18 11:18 07/16/18 11:18 07/16/18 11:18 07/16/18 11:18 no acute distress, obese - *Routine HEENT Exam Head: Present: normocephalic Eye: Present: EOMI, PERRL ENT: Present: mucous membranes dry - *Routine Neck Exam Present: supple - *Routine Respiratory Exam Present: decreased breath sounds Comments: dull to percussion on rt - *Routine Cardiovascular Exam Present: RRR - *Routine Abdominal Exam Present: soft - *Routine Extremities Exam Present: edema. Absent: Jae's sign - *Routine Skin Exam Present: intact - *Routine Neurological Exam Present: alert, oriented X3, CN II-XII intact - Routine Psychiatric Exam Present: normal affect Results Labs on day of discharge: Labs from last 24 hours 07/16/18 06:48 WBC 13.7 H RBC 4.73 Hgb 14.1 Hct 42.9 MCV 90.7 MCH 29.9 MCHC 32.9 RDW 17.3 Plt Count 250 D MPV 7.4 Neut % (Auto) 67.5 Lymph % (Auto) 18.0 [place] % (Auto) 9.6 H Eos % (Auto) 4.2 Baso % (Auto) 0.7 Neut # (Auto) 9.3 H Lymph # (Auto) 2.5 [place] # (Auto) 1.3 H Eos # (Auto) 0.6 H Baso # (Auto) 0.1 Preliminary micro results at discharge 07/14/18 09:45 Sputum Culture - Preliminary Sputum - Expectorated Sputum 07/13/18 18:40 Blood Culture - Preliminary Blood NO GROWTH AFTER 48 HOURS 07/13/18 18:40 Blood Culture - Preliminary Blood NO GROWTH AFTER 48 HOURS DS: Diagnosis - Discharge Diagnosis (1) Pneumonia Status: Acute (2) Lung mass Status: Acute (3) Essential hypertension Status: Acute (4) Overweight Status: Acute (5) Anxiety Status: Acute Discharge Plan - Patient Discharge Instructions ACTIVITY: Continue current activity DIET: continue same diet Patient Instructions: Pneumonia-Adult, Anxiety Disorders, High Blood Pressure - Follow up Plan Disposition: Home, Self-Long Term Medications: Home Medications Medication Instructions Recorded Confirmed Type LORazepam [Ativan 0.5mg tablet] 0.5 mg PO BID 07/13/18 07/13/18 History Prescriptions/Medication Reconciliation: New Metoprolol Tartrate [Lopressor 25mg tablet] 25 mg PO BID #60 tablet Lisinopril [Zestril 10mg Tab] 10 mg PO DAILY #30 tablet Continue LORazepam [Ativan 0.5mg tablet] 0.5 mg PO BID
== END 2018-07-16 14:18 | disposition home or self-care (01) ==
LOC: 2ND 16:17 → ER 16:17 → OBSVTOIN 19:22 → 2ND 19:23
PROVIDERS: ADMIT Family Medicine; ATTEND Emergency Medicine

== ENCOUNTER → 2018-07-17 11:21 | Outpatient (CLI) | payer OTHER, SELFPAY ==
--- NOTE | 2018-07-17 11:28 | US_ITS ---
US thoracentesis HISTORY: ITS.REASON: LUNG MASS,PNEUMONIA ORDERING PHYSICIAN: Alton Nichols MD PATIENT AGE: 53 years Comparison: None PROCEDURE: Following obtaining informed consent and after appropriate Time out, under aseptic conditions and local anesthesia with 1% buffered lidocaine using sonographic guidance a 25-gauge needle was inserted into the right-sided pleural effusion along the posterior axillary line in the lower chest using sonographic guidance. Approximately 10 cc's of Serosanguineous fluid was aspirated and sent to lab for evaluation. The patient tolerated the procedure well and left the radiology suite in stable condition. Post aspiration chest x-ray showed no evidence of pneumothorax. IMPRESSION: Successful sonographic guided diagnostic thoracentesis without complication
[2018-07-17 14:10] LABS: Source, Body Fld. Pleural Fluid
[2018-07-17 14:11] LABS: Appearance,Body Fld. Turbid
[2018-07-17 14:13] LABS: RBC,Body Fluid 11 cells/uL (< 10 X 10^3); TNC,Body Fluid 2034 cells/uL (< 1000); Volume,Body Fld. 9 mL
[2018-07-17 14:14] LABS: Mononuclear WBCs,Body Fluid 100 %; Polynuclear WBC,Body Fluid 0 %
--- NOTE | 2018-07-17 14:36 | XR_ITS ---
XR chest 2V HISTORY: ITS.REASON: POST THOROCENTESIS ORDERING PHYSICIAN: Alton Nichols MD PATIENT AGE: 53 years COMPARISON: 07/15/2018 FINDINGS: Status post diagnostic thoracentesis on the right. No evidence of pneumothorax. Right upper lobe mass with large right-sided pleural effusion with compressive atelectasis in the right lung base once again noted. Parenchymal opacity left lower lobe also noted may be due to an area of atelectasis or infiltrate. Right infrahilar mass/adenopathy noted. IMPRESSION: No evidence of pneumothorax status post thoracentesis. No change right upper lobe mass with effusion, right infrahilar mass or adenopathy, and left basilar atelectasis or infiltrate
[2018-07-19 09:44] LABS: Glucose, Body Fluid 110 mg/dL (.); LD, Body Fluid 502 IU/L (.); Protein, Body Fluid 4.6 g/dL (.)
== END ==
PROVIDERS: Family Provider Emergency Medicine; PCP Emergency Medicine; Visit Provider Internal Medicine
DX: R91.8 Other nonspecific abnormal finding of lung field (principal); J18.9 Pneumonia, unspecified organism
CPT/HCPCS: 32555; 71046; 82945; 83615; 84155; 87070; 87205; 89051

== ENCOUNTER → 2018-09-09 09:00 | Outpatient (CLI) | payer OTHER, SELFPAY ==
[2018-09-09 09:33] LABS: Blood Urea Nitrogen 17 mg/dL (7-18); Creatinine,Serum 1.18 mg/dL (0.70-1.30); Estimated Glomerular Filt Rate 65 ml/min (>60); GFR (African American) 79 ML/MIN (>60)
--- NOTE | 2018-09-09 10:07 | CT_ITS ---
CT head/brain wo/w con HISTORY: Lung cancer staging evaluate for metastatic disease ITS.REASON: LUNG CA ORDERING PHYSICIAN: Salma Zepeda MD PATIENT AGE: 53 years COMPARISON: None TECHNIQUE: Axial images obtained without and with 100 mL of Isovue-300. Brain and bone windows reviewed. All CT scans at the facility use one or more dose reduction, viz: automated exposure control, ma/kV adjustment per patient size (including targeted exams where dose is matched to indication, i.e. head), or iterative reconstruction technique. FINDINGS: No midline shift, mass effect, intracranial hemorrhage, hydrocephalus, or extra-axial fluid collection is evident. No enhancing lesions are evident. The calvarium has an unremarkable appearance. There are subcutaneous nodules noted one in the right renal area at 13 mm and one in the left parietal area at 21 mm. These do not enhance. Please correlate with physical exam. There is a subcutaneous nodule in the posterior occipital region centrally at 9 mm. No mastoid effusion. No sinus air-fluid levels.. Mild mucosal thickening involves the ethmoid sinuses IMPRESSION: 1. No acute intracranial findings. No convincing evidence of brain metastasis. 2. Nonspecific subcutaneous nodules of the scalp . These could represent sebaceous cyst. Please correlate with physical exam as subcutaneous metastasis could have a similar appearance .
== END ==
PROVIDERS: PCP Emergency Medicine; Visit Provider Internal Medicine Medical Oncology
DX: C34.91 Malignant neoplasm of unspecified part of right bronchus or lung (principal)
CPT/HCPCS: 36415; 70470; 82565; 84520; Q9967

== ENCOUNTER 2018-09-25 13:08 | Observation (INO) ==
[2018-09-25 13:38] LABS: Basophils % 0.2 % (0.1-2.0); Eosinophils # 0.1 K/mm3 (0.0-0.4); Eosinophils % 0.8 % (0.1-12.0); Hematocrit 32.3 % (42.0-52.0); Hemoglobin 9.9 g/dL (14.1-18.0); Lymphocytes # 1.3 K/mm3 (0.7-4.5); Lymphocytes % 8.3 % (10-50); Mean Corpuscular HGB Conc 30.8 g/dL (31.8-35.4); Mean Corpuscular Hemoglobin 25.8 pg (27.0-31.2); Mean Corpuscular Volume 83.8 fl (80-94); Mean Platelet Volume 6.6 fl (7.4-10.4); Monocytes # 0.9 K/mm3 (0.1-1.0); Monocytes % 5.7 % (1.7-9.3); Neutrophils # 13.6 K/mm3 (1.8-7.8); Platelet Count 529 K/mm3 (142-424); Red Blood Count 3.85 M/mm3 (4.60-6.20); Red Cell Distribution Width 18.8 % (11.5-17.5)
[2018-09-25 13:50] LABS: Albumin Level 2.9 gm/dL (3.4-5.0); Albumin/Globulin Ratio 0.6 (1.1-1.8); Anion Gap 24.3 mEq/L (5-15); Bilirubin,Total 0.9 mg/dL (0.2-1.0); Calcium 11.1 mg/dL (8.5-10.1); Globulin 4.7 gm/dl (1.3-3.2); Potassium 5.3 mmoL/L (3.5-5.1); Total Protein,Serum 7.6 gm/dL (6.4-8.2)
[2018-09-25 14:00] LABS: Microscopic, Urine URINE MICROSCOPIC (MICROSCOPIC)
[2018-09-25 14:02] LABS: Appearance,Urine SL CLOUDY (Clear); Blood, Urine Negative (Negative); Color,Urine YELLOW (Yellow); Glucose,Urine (UA) Negative (Negative); Ketones,Urine TRACE (Negative); Leukocyte Esterase,Urine Negative (Negative); PH,Urine 5.5 (5.0-8.5); Protein,Urine Negative (Negative); Specific Gravity, Urine >= 1.030 (1.005-1.030); Urobilinogen,Urine 0.2 EU/dl (0.2)
[2018-09-25 14:13] LABS: Lymphocytes % 10 % (10-50); Monocytes % 4 % (2-9); Neutrophils % 86 % (42-76); Total Cells Counted 100
[2018-09-25 14:27] LABS: Bilirubin,Urine Negative (Negative)
[2018-09-25 14:33] LABS: Bacteria,Urine 3+ /lpf; WBC,Urine Occasional #/hpf (0-3)
[2018-09-25 14:34] LABS: Amorphous Sediment,Urine 2+ /lpf
--- NOTE | 2018-09-25 17:24 | Emergency Department Note ---
ED Disposition Clinical Impression: Severe sepsis, Lung mass, Pleural effusion Disposition: Home, Self-Care Condition on Discharge: Serious Referrals: Provider,Referral, MD [Primary Care Provider] - Forms: Transfer Record - ED - Critical Care Critical Care Time: Yes Attestation: On 09/25/18, the high probability of a clinically significant, sudden or life threatening deterioration of the following system(s) required my full and direct attention, intervention and personal management. The time I documented below is in addition to time spent performing reported procedures but includes the following listed in this critical care notation. Vital system(s) involved:: Circulatory Failure, Central Nervous System, Respiratory Failure, Renal Failure, Shock (Septic) My critical care processes included: Assessment & monitoring of V/S, Initial and Re-exams, Data Review/Interpretation, Coordinating Care, Medication Orders and management, Documentation Medical Decision Making - Medical Records Medical records reviewed: Yes: I reviewed the patient's medical records. MR Comment: Discussed case with Critical Care/Staff Therapist at (Dr. Chairez). Agree with current management with Vanc, Zosy and IV Fluid. No farther intervention suggested at this time. Patient is placed on waiting list. Will call for admit bed/ED transfer when bed available. Discussed case with ED physician at as well (Dr. Montes). ED on divert at the monment. Patient care handed over to Dr. Gonzalez at the end of my shift. Awating transfer. Patient stable in ED at this time. - Robert Inquiry Pt receiving controlled substance: Yes Robert was queried for this patient: No Reason not queried -: Emergent pt cond-no time Risks and benefits of using a controlled substance: were discussed with pt by me Vital Signs: 09/25/18 13:08 09/25/18 13:10 09/25/18 13:51 Temperature 98.9 F 96.9 F L Temperature Source Rectal Tympanic Pulse Rate [Left Radial] 103 H 109 H Respiratory Rate 24 Blood Pressure [Right Arm] 126/97 H 104/77 L Blood Pressure Mean [Right Arm] 106 86 Blood Pressure Source [Right Arm] Automatic Cuff Automatic Cuff Blood Pressure Position [Right Arm] Sitting Sitting 02 Sat by Pulse Oximetry 95 95 Oxygen Delivery Method Nasal Cannula Room Air Oxygen Flow Rate (LPM) 2 09/25/18 14:38 09/25/18 15:44 09/25/18 16:42 Temperature 97.3 F L Temperature Source Temporal Artery Scan Pulse Rate [Left Radial] 104 H 100 H 96 H Respiratory Rate 24 28 H Blood Pressure [Right Arm] 97/77 L 101/64 L 99/57 L Blood Pressure Mean [Right Arm] 83 76 71 Blood Pressure Source [Right Arm] Automatic Cuff Automatic Cuff Automatic Cuff Blood Pressure Position [Right Arm] Sitting Sitting Sitting 02 Sat by Pulse Oximetry 95 100 98 Oxygen Delivery Method Nasal Cannula Nasal Cannula Room Air Oxygen Flow Rate (LPM) 3 3 09/25/18 19:02 09/25/18 19:21 09/25/18 20:00 Temperature Temperature Source Pulse Rate [Left Radial] 92 H 92 H 94 H Respiratory Rate 18 18 Blood Pressure [Right Arm] 95/61 L 106/58 L 95/58 L Blood Pressure Mean [Right Arm] 72 74 70 Blood Pressure Source [Right Arm] Automatic Cuff Manual Cuff/ Doppler Automatic Cuff Blood Pressure Position [Right Arm] Sitting Supine Sitting 02 Sat by Pulse Oximetry 95 96 100 Oxygen Delivery Method Nasal Cannula Room Air Oxygen Flow Rate (LPM) 2 09/25/18 20:30 Temperature Temperature Source Pulse Rate [Left Radial] 94 H Respiratory Rate 18 Blood Pressure [Right Arm] 99/59 L Blood Pressure Mean [Right Arm] 72 Blood Pressure Source [Right Arm] Automatic Cuff Blood Pressure Position [Right Arm] Sitting 02 Sat by Pulse Oximetry 100 Oxygen Delivery Method Room Air Oxygen Flow Rate (LPM) 2 - Lab Data Lab results reviewed: Yes: I reviewed the patient's lab results. Lab Results 09/25/18 13:20: WBC 16.0 H, RBC 3.85 L, Hgb 9.9 L, Hct 32.3 L, MCV 83.8, MCH 25.8 L, MCHC 30.8 L, RDW 18.8 H, Plt Count 529 H, MPV 6.6 L, Neut % (Auto) 85.0 H, Lymph % (Auto) 8.3 L, [place] % (Auto) 5.7, Eos % (Auto) 0.8, Baso % (Auto) 0.2, Neut # (Auto) 13.6 H, Lymph # (Auto) 1.3, [place] # (Auto) 0.9, Eos # (Auto) 0.1, Baso # (Auto) 0.0, Total Counted 100, Neutrophils % (Manual) 86 H, Lymphocytes % (Manual) 10, Monocytes % (Manual) 4, Platelet Estimate Marked increase, RBC Morphology Not Reportable 09/25/18 13:20: Sodium 125 L, Potassium 5.3 H, Chloride 88 L, Carbon Dioxide 18 L, Anion Gap 24.3 H, BUN 41 H, Creatinine 1.28, Estimated Creat Clear 110, Estimated GFR 59, Est GFR ( Amer) 72, Glucose 90, Calcium 11.1 H, Total Bilirubin 0.9, AST 266 H, ALT 266 H, Alkaline Phosphatase 113, Total Protein 7.6, Albumin 2.9 L, Globulin 4.7 H, Albumin/Globulin Ratio 0.6 L 09/25/18 13:20: Lactate 6.7 H 09/25/18 13:40: Urine Color Yellow, Urine Appearance Sl cloudy, Urine pH 5.5, Ur Specific [place] >= 1.030, Urine Protein Negative, Urine Glucose (UA) Negative, Urine Ketones Trace, Urine Blood Negative, Urine Nitrate Negative, Urine Bilirubin Negative, Urine Urobilinogen 0.2, Ur Leukocyte Esterase Negative, Urine RBC None, Urine WBC Occasional, Ur Squamous Epith Cells None, Amorphous Sediment 2+, Urine Bacteria 3+ 09/25/18 17:40: Lactate 6.1 H Result diagrams: 09/25/18 13:20 09/25/18 13:20 Orders (Tests/Meds): ED MEDICATIONS Generic Name Dose Route Start Last Admin Trade Name Freq PRN Reason Stop Dose Admin Piperacillin Sod/Tazobactam 100 mls @ 200 mls/hr 09/25/18 14:15 09/25/18 15:02 Sod 4.5 gm/ Sodium Chloride IV 10/09/18 14:14 200 mls/hr Q6H CARLOS Administration Protocol Vancomycin HCl 1,750 mg/ 250 mls @ 125 mls/hr 09/25/18 15:00 09/25/18 16:37 Sodium Chloride IV 10/09/18 14:59 125 mls/hr Q12H CARLOS Administration Sodium Chloride 3,420 mls @ 1,710 mls/hr 09/25/18 18:48 09/25/18 18:50 Sod Chlor 0.9% 1000ml Bag 30 ml/kg infuse over 2 hr (3420 ml) 09/25/18 20:47 1,710 mls/hr IV Administration .Q2H ONE Sodium Chloride 1,000 mls @ 150 mls/hr 09/25/18 20:30 Sod Chlor 0.9% 1000ml Bag IV 10/25/18 20:29 .Q6H40M CARLOS Discontinued Medications Generic Name Dose Route Start Last Admin Trade Name Freq PRN Reason Stop Dose Admin Acetaminophen 1,000 mg 09/25/18 13:47 09/25/18 13:48 Tylenol 500mg Tablet PO 09/25/18 13:48 1,000 mg ONCE ONE Administration Sodium Chloride 1,000 mls @ 999 mls/hr 09/25/18 13:45 09/25/18 13:45 Sod Chlor 0.9% 1000ml Bag IV 09/25/18 14:45 999 mls/hr .Q1H1M CARLOS Administration Sodium Chloride 1,000 mls @ 999 mls/hr 09/25/18 17:30 09/25/18 18:49 Sod Chlor 0.9% 1000ml Bag IV 09/25/18 18:30 999 mls/hr .Q1H1M CARLOS Administration Iopamidol 75 ml 09/25/18 15:09 09/25/18 15:10 [id number]; 75ml Vial IV 09/25/18 15:10 75 ml ONCE ONE Administration Protocol Ketorolac Tromethamine 30 mg 09/25/18 16:11 09/25/18 16:24 Toradol 30mg/Ml Vial IV 09/25/18 16:12 30 mg ONCE ONE Administration Sodium Chloride 10 ml 09/25/18 15:09 09/25/18 15:10 Rad-Saline Flush 10ml Syringe IV 09/25/18 15:10 10 ml ONCE ONE Administration ORDERS Category Date Time Status Lactic Acid Follow up (RFLX 2) Stat Lab 09/25/18 20:00 Received UA [Urinalysis and Microscopic] Stat Lab 09/25/18 13:40 Ordered Blood Culture Stat Micro 09/25/18 13:20 Received Urine Culture Stat Micro 09/25/18 13:40 Received - CT Data CT Scan: Chest Time Received: 15:30 Findings Narrative: CXR: Complete opacification of the right chest some deviation of the lower trachea to the left consistent with large right effusion. CT chest: Extensive progression of the right-sided pulmonary mass and adenopathy which is nearly completely occupying the right mid thorax with extension anteriorly and posteriorly across midline and also extension into multiple intercostal areas. A small amount of fluid density is present centrally and in the lower hemithorax. A pleural drain is present in the lower thorax. There is extensive mass effect upon the mediastinum shifted toward the left. Suspected occlusion versus very slow blood flow within the pulmonary arteries on the right with extreme narrowing of the superior vena cava. - Tissue Perfus/Sepsis Re-Eval Reperfusion Exam Performed: Yes Date Performed: 09/25/18 Time Performed: 16:08 Sepsis Follow-Up: Yes: Respiratory exam, Cardiovascular exam, Capillary refill, Peripheral pulse strength, Peripheral pulse location, Skin exam, Vital Signs General Adult HPI - General Chief complaint: PAIN Stated complaint: SOA, weak, lethargic Time Seen by Provider: 09/25/18 13:11 Mode of Arrival: EMS Limitations: No Limitations Description of Symptoms (Recalled from ER Triage Doc. by RN): PT states that he has a bed sore that he is having pain from this. States he is SOA, pt has stage 4 lung CA - History of Present Illness HPI narrative: Patient with history of HTN, recent diagnosis of right lung cancer, brought to the ED by his for generalized weakness. Denies fever, chills, nausea, vomiting, diarrhea, changes in mental status. Denies any other acute complains at this time. Onset (ago): week(s) Location: chest Radiation: non-radiation - Related Data Home Medications Medication Instructions Recorded Confirmed guaifenesin ER 600 mg tablet, 600 mg PO Q12H 09/02/18 09/25/18 extended release 12 hr polysaccharide iron complex 150 mg 150 mg PO DAILY cap 09/02/18 09/25/18 iron capsule Previous Rx's Medication Instructions Recorded oxycodone 10 mg tablet 10 mg PO TID PRN #63 tab 09/02/18 lorazepam 0.5 mg tablet 0.5 mg PO BID PRN #60 tab 09/03/18 Allergies Allergy/AdvReac Type Severity Reaction Status Date / Time No Known Allergies Allergy Verified 09/25/18 13:19 [facility] History I have reviewed the patient's past medical history: Yes Medical History: Reports:: Anxiety, Hypertension Denies:: Diabetes Mellitus Type 1, Diabetes Mellitus Type 2 Comment: Lung Cancer Other Surgeries: Yes: Hernia Repair Amputation: No Fractures: No - Social History Smoking Status: Former smoker Alcohol Intake: never Substance Use Type: denies use Occupational Status: employed Housing: house Household Members: spouse Comment: Mr. Dela Cruz went through the seventh grade but can read and write. 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 His of 29 years is with him today. She recently had a hysterectomy. They live in their own home and have a dog. - Psychiatric History Expresses thoughts of harming self/others: None Suicide Plan Description: No Plan Pschychiatric History:: Reports:: Anxiety Family Hx:: Anemia, Heart Attack, Hypertension Comment: His mother had emphysema. There is no family history of any cancer. ROS Obtained: Yes All systems reviewed & no additional complaints Physical Exam - General General appearance: alert, in no apparent distress, lethargic, other (Generalized weakness. ) - Head Head exam: atraumatic, normocephalic, normal inspection - Eye Eye exam: Present: normal appearance, PERRL, EOMI - ENT ENT exam: Present: normal exam, normal oropharynx, mucous membranes moist, TM's normal bilaterally, normal external ear exam - Neck Neck exam: Present: normal inspection, full ROM, trachea midline. Absent: meningismus, lymphadenopathy - Chest Chest inspection: Present: symmetric chest wall rise, other (Diminised breath sound on the right. ). Absent: tenderness - Respiratory Respiratory exam: Present: normal lung sounds bilaterally. Absent: respiratory distress - Cardiovascular Cardiovascular exam: Present: regular rate, normal rhythm. Absent: JVD - Abdominal Exam Abdominal exam: Present: soft, normal bowel sounds. Absent: distention, tenderness, guarding - Extremities Exam Extremities exam: Present: normal inspection, full ROM, normal capillary refill. Absent: calf tenderness - Back Exam Back exam: Present: normal inspection. Absent: tenderness - Neurological Exam Neurological exam: Present: alert, oriented X3 - Psychiatric Psychiatric exam: Present: normal affect, normal mood - Skin Skin exam: Present: warm, dry, intact, normal color - Lymphatic Lymphatic Findings: no adenopathy
[2018-09-26 08:36] LABS: Albumin Level 2.7 gm/dL (3.4-5.0); Albumin/Globulin Ratio 0.6 (1.1-1.8); Bilirubin,Total 0.8 mg/dL (0.2-1.0); Globulin 4.4 gm/dl (1.3-3.2); Total Protein,Serum 7.1 gm/dL (6.4-8.2)
[2018-09-26 09:17] LABS: Basophils # 0.1 K/mm3 (0-0.2); Basophils % 0.4 % (0.1-2.0); Eosinophils # 0.2 K/mm3 (0.0-0.4); Eosinophils % 1.2 % (0.1-12.0); Hematocrit 31.6 % (42.0-52.0); Hemoglobin 9.4 g/dL (14.1-18.0); Lymphocytes # 0.9 K/mm3 (0.7-4.5); Lymphocytes % 6.5 % (10-50); Mean Corpuscular HGB Conc 29.8 g/dL (31.8-35.4); Mean Corpuscular Hemoglobin 25.3 pg (27.0-31.2); Mean Platelet Volume 6.7 fl (7.4-10.4); Monocytes # 0.8 K/mm3 (0.1-1.0); Monocytes % 5.6 % (1.7-9.3); Neutrophils # 12.1 K/mm3 (1.8-7.8); Neutrophils % 86.4 % (37.0-80.0); Platelet Count 495 K/mm3 (142-424); Red Blood Count 3.71 M/mm3 (4.60-6.20); Red Cell Distribution Width 18.5 % (11.5-17.5)
[2018-09-26 10:26] LABS: Eosinophils % 1 % (0-3); Hypochromasia 2+; Lymphocytes % 7 % (10-50); Monocytes % 5 % (2-9); Neutrophils % 86 % (42-76); Total Cells Counted 100
--- NOTE | 2018-09-26 10:48 | Pharmacy Consult Notes ---
- Pharmacy Consult Date: 09/26/18 Time: 10:46 Referring provider: DR. WOLF Reason for Consult:: VANCOMYCIN DOSING Allergies and ADEs:: Allergies Allergy/AdvReac Type Severity Reaction Status Date / Time No Known Allergies Allergy Verified 09/25/18 13:19 Home Medications:: Home Medications Medication Instructions Recorded Confirmed Type guaifenesin ER 600 mg tablet, 600 mg PO Q12H 09/02/18 09/25/18 History extended release 12 hr polysaccharide iron complex 150 mg 150 mg PO DAILY cap 09/02/18 09/25/18 History iron capsule Height: 1.78 m Weight: 113.852 kg Laboratory Results:: Laboratory Results - last 24 hr 09/25/18 13:20: WBC 16.0 H, RBC 3.85 L, Hgb 9.9 L, Hct 32.3 L, MCV 83.8, MCH 25.8 L, MCHC 30.8 L, RDW 18.8 H, Plt Count 529 H, MPV 6.6 L, Neut % (Auto) 85.0 H, Lymph % (Auto) 8.3 L, [place] % (Auto) 5.7, Eos % (Auto) 0.8, Baso % (Auto) 0.2, Neut # (Auto) 13.6 H, Lymph # (Auto) 1.3, [place] # (Auto) 0.9, Eos # (Auto) 0.1, Baso # (Auto) 0.0, Total Counted 100, Neutrophils % (Manual) 86 H, Lymphocytes % (Manual) 10, Monocytes % (Manual) 4, Platelet Estimate Marked increase, RBC Morphology Not Reportable 09/25/18 13:20: Sodium 125 L, Potassium 5.3 H, Chloride 88 L, Carbon Dioxide 18 L, Anion Gap 24.3 H, BUN 41 H, Creatinine 1.28, Estimated Creat Clear 110, Estimated GFR 59, Est GFR ( Amer) 72, Glucose 90, Calcium 11.1 H, Total Bilirubin 0.9, AST 266 H, ALT 266 H, Alkaline Phosphatase 113, Total Protein 7.6, Albumin 2.9 L, Globulin 4.7 H, Albumin/Globulin Ratio 0.6 L 09/25/18 13:20: Lactate 6.7 H 09/25/18 13:40: Urine Color Yellow, Urine Appearance Sl cloudy, Urine pH 5.5, Ur Specific [place] >= 1.030, Urine Protein Negative, Urine Glucose (UA) Negative, Urine Ketones Trace, Urine Blood Negative, Urine Nitrate Negative, Urine Bilirubin Negative, Urine Urobilinogen 0.2, Ur Leukocyte Esterase Negative, Urine RBC None, Urine WBC Occasional, Ur Squamous Epith Cells None, Amorphous Sediment 2+, Urine Bacteria 3+ 09/25/18 17:40: Lactate 6.1 H 09/25/18 20:00: Lactate 6.2 H 09/26/18 07:20: Lactate 3.9 H 09/26/18 07:20: Sodium 128 L, Potassium 5.0, Chloride 94 L, Carbon Dioxide 18 L, Anion Gap 21.0 H, BUN 43 H, Creatinine 1.47 H, Estimated Creat Clear 96, Estimated GFR 51 L, Est GFR ( Amer) 61, Glucose 89, Calcium 10.0, Total Bilirubin 0.8, AST 199 H D, ALT 207 H, Alkaline Phosphatase 105, Total Protein 7.1, Albumin 2.7 L, Globulin 4.4 H, Albumin/Globulin Ratio 0.6 L 09/26/18 07:20: WBC 14.0 H, RBC 3.71 L, Hgb 9.4 L, Hct 31.6 L, MCV 85.0, MCH 25.3 L, MCHC 29.8 L, RDW 18.5 H, Plt Count 495 H, MPV 6.7 L, Neut % (Auto) 86.4 H, Lymph % (Auto) 6.5 L, [place] % (Auto) 5.6, Eos % (Auto) 1.2, Baso % (Auto) 0.4, Neut # (Auto) 12.1 H, Lymph # (Auto) 0.9, [place] # (Auto) 0.8, Eos # (Auto) 0.2, Baso # (Auto) 0.1, Total Counted 100, Neutrophils % (Manual) 86 H, Lymphocytes % (Manual) 7 L, Monocytes % (Manual) 5, Eosinophils % (Manual) 1, Metamyelocytes % 1.0, Platelet Estimate Slight increase, Hypochromasia 2+ Medical History: Reports:: Anxiety, Hypertension Denies:: Diabetes Mellitus Type 1, Diabetes Mellitus Type 2 Assessment and Plan - Assessment and plan all Dx Assessment and Plan for all problems:: BASED ON PATIENT FACTORS, RECOMMEND VANCOMYCIN 1,500MG IV EVERY 12 HOURS. PATIENT HAS BEEN ON 1,750MG EVERY 12 HOURS, BUT RENAL FUNCTION HAS WORSENED SINCE ADMISSION. PHARMACY WILL CONTINUE TO MONITOR AND WILL OBTAIN TROUGH PRIOR TO FOURTH DOSE. -ALBAN TORRESD
--- NOTE | 2018-09-26 10:59 | Pharmacy Consult Notes ---
[facility] Pharmacy VTE Monitoring - Patient Demographics Admission date: 09/26/18 Report Date: 09/26/18 Time: 10:59 Allergies/Adverse Reactions: Patient Allergies No Known Allergies Allergy (Verified 09/25/18 13:19) Height: 1.78 m Weight: 113.852 kg Patient Problems: Current Active Problems Lung mass (Acute) Pleural effusion (Acute) Severe sepsis (Acute) - VTE Risk Labs: VTE Related Lab Results Hgb 9.4 g/dL (14.1-18.0) L 09/26/18 07:20 Hct 31.6 % (42.0-52.0) L 09/26/18 07:20 Plt Count 495 K/mm3 (142-424) H 09/26/18 07:20 BUN 43 mg/dL (7-18) H 09/26/18 07:20 Creatinine 1.47 mg/dL (0.70-1.30) H 09/26/18 07:20 Estimated Creat Clear 96 mL/min (50-200) 09/26/18 07:20 - Prophylaxis VTE Prophylaxis Ordered?: Yes Types of VTE Prophylaxis: TEDS Knee High Location of Applied Device: Bilateral Lower Extremeties - VTE Diagnosis Confirmed Treatment or plan recommended: Continue Current Treatment
--- NOTE | 2018-09-26 15:10 | Consult Report ---
*Admission Date: 09/26/18 *History of present illness: 53 yo with recent dx of lung cancer with pleural effusion dx at . I saw the p t a couple of weeks ago and we did ct of head that showed no metastatic disease to brain. we ordered molecular studies and he was to f/up for results and plan of treatment was to be based on these results. he presented to er yesterday with increasing lethargy and confusion per . he is being treated for sepsis with broad spectrum abx. he is on [place] oxygen. he had a ct scan compared to a scan in jun 2018 showing significant worsening mass and narrowing of the SVC. the plan was to transfer to however they have no beds available. is at bedside. pt is moaning asking for help. his breathing is shallow and labored. [facility] History Medical History: Reports:: Anxiety, Cancer, Hypertension Denies:: Diabetes Mellitus Type 1, Diabetes Mellitus Type 2, MRSA Laterality Cases: Right: Other Other Surgeries: Yes: Hernia Repair Amputation: No Fractures: No - *Social History Educational Level: Attended Grade School Smoking Status: Former smoker Tobacco Type: cigarettes #Yrs smoked (if former smoker): 33 Alcohol Intake: never Substance Use Type: denies use Occupational Status: unemployed Housing: house Household Members: spouse, children - Psychiatric History Expresses thoughts of harming self/others: None Suicide Plan Description: No Plan Pschychiatric History:: Reports:: Anxiety *Family Hx:: Anemia, Heart Attack, Hypertension Review of Systems - Review of Systems Review of systems:: unable to obtain Meds Home Medications Medication Instructions Recorded Confirmed Type guaifenesin ER 600 mg tablet, 600 mg PO Q12H 09/02/18 09/25/18 History extended release 12 hr polysaccharide iron complex 150 mg 150 mg PO DAILY cap 09/02/18 09/25/18 History iron capsule Allergies Allergy/AdvReac Type Severity Reaction Status Date / Time No Known Allergies Allergy Verified 09/25/18 13:19 Exam Vital signs and Labs for Last 24 Hours: Temp Pulse Resp BP Pulse Ox 98 F 107 H 12 121/85 94 L 09/26/18 11:01 09/26/18 14:00 09/26/18 14:00 09/26/18 14:00 09/26/18 14:00 Laboratory Results - last 24 hr 09/25/18 17:40: Lactate 6.1 H 09/25/18 20:00: Lactate 6.2 H 09/26/18 07:20: Lactate 3.9 H 09/26/18 07:20: Sodium 128 L, Potassium 5.0, Chloride 94 L, Carbon Dioxide 18 L, Anion Gap 21.0 H, BUN 43 H, Creatinine 1.47 H, Estimated Creat Clear 96, Estimated GFR 51 L, Est GFR ( Amer) 61, Glucose 89, Calcium 10.0, Total Bilirubin 0.8, AST 199 H D, ALT 207 H, Alkaline Phosphatase 105, Total Protein 7.1, Albumin 2.7 L, Globulin 4.4 H, Albumin/Globulin Ratio 0.6 L 09/26/18 07:20: WBC 14.0 H, RBC 3.71 L, Hgb 9.4 L, Hct 31.6 L, MCV 85.0, MCH 25.3 L, MCHC 29.8 L, RDW 18.5 H, Plt Count 495 H, MPV 6.7 L, Neut % (Auto) 86.4 H, Lymph % (Auto) 6.5 L, [place] % (Auto) 5.6, Eos % (Auto) 1.2, Baso % (Auto) 0.4, Neut # (Auto) 12.1 H, Lymph # (Auto) 0.9, [place] # (Auto) 0.8, Eos # (Auto) 0.2, Baso # (Auto) 0.1, Total Counted 100, Neutrophils % (Manual) 86 H, Lymphocytes % (Manual) 7 L, Monocytes % (Manual) 5, Eosinophils % (Manual) 1, Metamyelocytes % 1.0, Platelet Estimate Slight increase, Hypochromasia 2+ 09/26/18 11:30: Lactate 4.3 H 09/26/18 14:11: Lactate 4.5 H I & O for Last 24 hours: Intake & Output 09/24/18 09/25/18 09/26/18 09/27/18 11:59 11:59 11:59 11:59 Output Total 450 / 450 Balance -450 / -450 Weight 251 lb Microbiology Reports for the Last 24 Hours: Microbiology 09/25/18 13:40 Urine,Clean Catch Urine Culture - Preliminary NO GROWTH AFTER 24 HOURS Internal Medicine - CN: Reslt - Labs CBC & Chem 7: 09/26/18 07:20 09/26/18 07:20 Labs: Short CBC 09/26/18 Range/Units 07:20 WBC 14.0 H (4.8-10.8) K/mm3 Hgb 9.4 L (14.1-18.0) g/dL Hct 31.6 L (42.0-52.0) % Plt Count 495 H (142-424) K/mm3 BMP 09/26/18 07:20 Sodium 128 L Potassium 5.0 Chloride 94 L Carbon Dioxide 18 L BUN 43 H Creatinine 1.47 H Glucose 89 Calcium 10.0 Liver Function 09/26/18 Range/Units 07:20 Total Bilirubin 0.8 (0.2-1.0) mg/dL AST 199 H D (15-37) U/L ALT 207 H (12-78) U/L Alkaline Phosphatase 105 (46-116) U/L Albumin 2.7 L (3.4-5.0) gm/dL Assessment and Plan - Assessment and plan all Dx Assessment and Plan for all problems:: pt has progressive growth of known lung cancer with narrowing of svc and is being treated for sepsis and pna. pt is critically ill. he is incoherent and moaning. breathing is shallow. i discussed with his at bedside I though he was dying. I explained that he was not a candidate for treatment for his cancer at this point. I explained that I did not think could offer any additional helpful treatment. We discussed end of life issues and goals of care. she expressed she did not want him to suffer and wanted to be able to take him home. I recommended hospice. we discussed code status and she is agreeable to DNR. d/w nursing and orders written. thank you for referral. please call with questions. Salma Zepeda MD
--- NOTE | 2018-09-26 15:39 | H&P/Discharge Summary ---
Addendum entered and electronically signed by Manuel Haji APRN 09/26/18 15:45: care transfered to hospice Original Note: General - General Admission date:: 09/26/18 Discharge date: 09/26/18 *Admission Date: 09/26/18 *History of present illness: 53 yo with recent dx of lung cancer with pleural effusion dx at . Pt presented to er yesterday with increasing lethargy and confusion per and ed staff. he is on [place] oxygen. The plan was to transfer to however they have no beds available. Pt admitted while waiting for bed at . Dr. Zepeda consult see note. Patient like to change CODE STATUS to DNR hospice consult and to be discharged home as soon as possible so he can pass away at home. [facility] History I have reviewed the patient's past medical history: Yes Medical History: Reports:: Anxiety, Cancer, Hypertension Denies:: Diabetes Mellitus Type 1, Diabetes Mellitus Type 2, MRSA Laterality Cases: Right: Other Other Surgeries: Yes: Hernia Repair Amputation: No Fractures: No - *Social History Educational Level: Attended Grade School Smoking Status: Former smoker Tobacco Type: cigarettes #Yrs smoked (if former smoker): 33 Alcohol Intake: never Substance Use Type: denies use Occupational Status: unemployed Housing: house Household Members: spouse, children - Psychiatric History Expresses thoughts of harming self/others: None Suicide Plan Description: No Plan Pschychiatric History:: Reports:: Anxiety *Family Hx:: Anemia, Heart Attack, Hypertension Review of Systems - Review of Systems Review of systems:: unable to obtain Exam Vital signs and Labs for Last 24 Hours: Temp Pulse Resp BP Pulse Ox 98 F 107 H 12 121/85 94 L 09/26/18 11:01 09/26/18 14:00 09/26/18 14:00 09/26/18 14:00 09/26/18 14:00 Laboratory Results - last 24 hr 09/25/18 17:40: Lactate 6.1 H 09/25/18 20:00: Lactate 6.2 H 09/26/18 07:20: Lactate 3.9 H 09/26/18 07:20: Sodium 128 L, Potassium 5.0, Chloride 94 L, Carbon Dioxide 18 L, Anion Gap 21.0 H, BUN 43 H, Creatinine 1.47 H, Estimated Creat Clear 96, Estimated GFR 51 L, Est GFR ( Amer) 61, Glucose 89, Calcium 10.0, Total Bilirubin 0.8, AST 199 H D, ALT 207 H, Alkaline Phosphatase 105, Total Protein 7.1, Albumin 2.7 L, Globulin 4.4 H, Albumin/Globulin Ratio 0.6 L 09/26/18 07:20: WBC 14.0 H, RBC 3.71 L, Hgb 9.4 L, Hct 31.6 L, MCV 85.0, MCH 25.3 L, MCHC 29.8 L, RDW 18.5 H, Plt Count 495 H, MPV 6.7 L, Neut % (Auto) 86.4 H, Lymph % (Auto) 6.5 L, Moore % (Auto) 5.6, Eos % (Auto) 1.2, Baso % (Auto) 0.4, Neut # (Auto) 12.1 H, Lymph # (Auto) 0.9, Moore # (Auto) 0.8, Eos # (Auto) 0.2, Baso # (Auto) 0.1, Total Counted 100, Neutrophils % (Manual) 86 H, Lymphocytes % (Manual) 7 L, Monocytes % (Manual) 5, Eosinophils % (Manual) 1, Metamyelocytes % 1.0, Platelet Estimate Slight increase, Hypochromasia 2+ 09/26/18 11:30: Lactate 4.3 H 09/26/18 14:11: Lactate 4.5 H I & O for Last 24 hours: Intake & Output 09/24/18 09/25/18 09/26/18 09/27/18 11:59 11:59 11:59 11:59 Output Total 450 / 450 Balance -450 / -450 Weight 251 lb Microbiology Reports for the Last 24 Hours: Microbiology 09/25/18 13:40 Urine,Clean Catch Urine Culture - Preliminary NO GROWTH AFTER 24 HOURS Narrative: Not get to see patient before discharge assessment was not completed per Hospital Course Hospital Course: Has asked for patient to become DNR with hospice consult comfort care only and to be stable since possible so he can be comfortable and at home. Results Labs on day of discharge: Labs from last 24 hours 09/26/18 09/26/18 09/26/18 14:11 11:30 07:20 WBC 14.0 H RBC 3.71 L Hgb 9.4 L Hct 31.6 L MCV 85.0 MCH 25.3 L MCHC 29.8 L RDW 18.5 H Plt Count 495 H MPV 6.7 L Neut % (Auto) 86.4 H Lymph % (Auto) 6.5 L Moore % (Auto) 5.6 Eos % (Auto) 1.2 Baso % (Auto) 0.4 Neut # (Auto) 12.1 H Lymph # (Auto) 0.9 Moore # (Auto) 0.8 Eos # (Auto) 0.2 Baso # (Auto) 0.1 Total Counted 100 Neutrophils % (Manual) 86 H Lymphocytes % (Manual) 7 L Monocytes % (Manual) 5 Eosinophils % (Manual) 1 Metamyelocytes % 1.0 Platelet Estimate Slight increase Hypochromasia 2+ Sodium Potassium Chloride Carbon Dioxide Anion Gap BUN Creatinine Estimated Creat Clear Estimated GFR Est GFR ( Amer) Glucose Lactate 4.5 H 4.3 H Calcium Total Bilirubin AST ALT Alkaline Phosphatase Total Protein Albumin Globulin Albumin/Globulin Ratio 09/26/18 09/26/18 09/25/18 07:20 07:20 20:00 WBC RBC Hgb Hct MCV MCH MCHC RDW Plt Count MPV Neut % (Auto) Lymph % (Auto) Moore % (Auto) Eos % (Auto) Baso % (Auto) Neut # (Auto) Lymph # (Auto) Moore # (Auto) Eos # (Auto) Baso # (Auto) Total Counted Neutrophils % (Manual) Lymphocytes % (Manual) Monocytes % (Manual) Eosinophils % (Manual) Metamyelocytes % Platelet Estimate Hypochromasia Sodium 128 L Potassium 5.0 Chloride 94 L Carbon Dioxide 18 L Anion Gap 21.0 H BUN 43 H Creatinine 1.47 H Estimated Creat Clear 96 Estimated GFR 51 L Est GFR ( Amer) 61 Glucose 89 Lactate 3.9 H 6.2 H Calcium 10.0 Total Bilirubin 0.8 AST 199 H D ALT 207 H Alkaline Phosphatase 105 Total Protein 7.1 Albumin 2.7 L Globulin 4.4 H Albumin/Globulin Ratio 0.6 L 09/25/18 17:40 WBC RBC Hgb Hct MCV MCH MCHC RDW Plt Count MPV Neut % (Auto) Lymph % (Auto) Moore % (Auto) Eos % (Auto) Baso % (Auto) Neut # (Auto) Lymph # (Auto) Moore # (Auto) Eos # (Auto) Baso # (Auto) Total Counted Neutrophils % (Manual) Lymphocytes % (Manual) Monocytes % (Manual) Eosinophils % (Manual) Metamyelocytes % Platelet Estimate Hypochromasia Sodium Potassium Chloride Carbon Dioxide Anion Gap BUN Creatinine Estimated Creat Clear Estimated GFR Est GFR ( Amer) Glucose Lactate 6.1 H Calcium Total Bilirubin AST ALT Alkaline Phosphatase Total Protein Albumin Globulin Albumin/Globulin Ratio Preliminary micro results at discharge 09/25/18 13:40 Urine Culture - Preliminary Urine,Clean Catch NO GROWTH AFTER 24 HOURS - Additional Comments Discussed with Dr. Gonzalez all orders per Dr. Gonzalez Discharge Medications - Medications for Discharge Home Medication List at Discharge: No Action guaifenesin ER 600 mg tablet, extended release 12 hr 600 mg PO Q12H polysaccharide iron complex 150 mg iron capsule 150 mg PO DAILY cap oxycodone 10 mg tablet 10 mg PO TID PRN #63 tab PRN Reason: Cancer lorazepam 0.5 mg tablet 0.5 mg PO BID PRN #60 tab PRN Reason: Anxiety Disposition Disposition: Hospice - Home
[2018-09-26 17:12] VITALS: BP 113/85
== END 2018-09-26 17:12 | disposition hospice, home (50) ==
LOC: ER 13:08 → 2ND 09-26 09:45 → INTOOBSV 09-26 11:03 → 2ND 09-26 11:04
PROVIDERS: ADMIT Emergency Medicine; ATTEND Emergency Medicine